=== PATIENT | female | born 1950 | race Caucasian/White ===

== ENCOUNTER 2023-05-23 21:28 | Inpatient (IN) | payer OTHER, MEDICARE ==
[~2023-05-23] VITALS: Ht 149.9 cm; Wt 65.8 kg
[2023-05-23 22:03] VITALS: BP_SYST 161; PULSE 94; RESP 22; TEMP 98.3; O2SAT 96
[2023-05-23 23:45] LABS: BASOPHILS % (AUTO) 0.2 % (0.0-2.0); EOSINOPHILS # (AUTO) 0.3 K/uL (0.0-0.4); EOSINOPHILS % (AUTO) 3.1 % (0.0-4.0); HEMATOCRIT 34.7 % (36-48); HEMOGLOBIN 11.5 g/dL (12.0-16.0); LYMPHOCYTES % (AUTO) 11.9 % (20.5-51.5); MEAN CORPUSCULAR HEMOGLOBIN 29 pg (27-31); MEAN CORPUSCULAR HGB CONC 33 % (32-36); MEAN CORPUSCULAR VOLUME 88 fL (79.0-98.0); MONOCYTES # (AUTO) 0.5 K/uL (0.0-1.0); MONOCYTES % (AUTO) 6.5 % (1.7-9.3); NEUTROPHILS # (AUTO) 6.5 K/uL (1.8-7.7); NEUTROPHILS % (AUTO) 78.3 % (40.0-70.0); PLATELET COUNT (AUTO) 215 K/uL (130-430); RED BLOOD CELL COUNT(AUTO) 3.97 MIL/uL (4.2-6.2); RED CELL DISTRIBUTION WIDTH 14.2 % (9.0-15.0); WHITE BLOOD COUNT (AUTO) 8.2 K/uL (4.8-10.8)
[2023-05-23 23:52] LABS: ANION GAP 13 (5-15); CALCIUM 9.3 mg/dL (8.4-11.0); CARBON DIOXIDE 22 mmol/L (23-29); CHLORIDE 110 mmol/L (98-107); CREATININE 5.02 mg/dL (0.55-1.30); GLUCOSE 126 mg/dL (74-106); POTASSIUM 4.2 mmol/L (3.5-5.1); SODIUM SERUM 145 mmol/L (136-145); UREA NITROGEN, BLOOD 91 mg/dL (8-21)
[2023-05-23 23:56] LABS: ALANINE AMINOTRANSFERASE 31 U/L (12-78); ALBUMIN 3.2 g/dL (3.4-4.8); ASPARTATE AMINOTRANSFERASE 12 U/L (10-37); BILIRUBIN,DIRECT < 0.1 mg/dL (0.0-0.3); TOTAL BILIRUBIN 0.2 mg/dL (0.0-1.0); TOTAL PROTEIN, SERUM 7.7 g/dL (6.4-8.3)
[2023-05-24] VITALS (8 sets, daily range): BP systolic 133–149; PULSE 67–97; RESP 13–18; TEMP 97.3–98.2; O2SAT 95–99
[2023-05-24 01:03] LABS: BILIRUBIN,URINE NEGATIVE (NEGATIVE); CLARITY/URINE SL CLOUDY (CLEAR); COLOR,URINE YELLOW (YELLOW); GLUCOSE,URINE NEGATIVE (NEGATIVE); KETONES,URINE NEGATIVE (NEGATIVE); LEUKOCYTE ESTERASE ,URINE 1+ (NEGATIVE); NITRITE, URINE NEGATIVE (NEGATIVE); PROTEIN URINE 1+ (NEGATIVE); UROBILINOGEN,URINE 0.2 (0.2-1.0)
[2023-05-24] MEDS ORDERED: HYDC2.5% TP (01:03)
[2023-05-24] MEDS ORDERED: ALEN10TA25 PO (01:03)
[2023-05-24] MEDS ORDERED: ACET325T PO (01:03)
[2023-05-24] MEDS ORDERED: FAMO40TA7 PO (01:03)
[2023-05-24] MEDS ORDERED: SYN50 PO (01:03)
[2023-05-24] MEDS ORDERED: ONDA-8 TL (01:03)
[2023-05-24] MEDS ORDERED: SENN8.6T19 PO (01:03)
[2023-05-24] MEDS ORDERED: MOM PO (01:03)
[2023-05-24] MEDS ORDERED: GUAI-1197 PO (01:03)
[2023-05-24] MEDS ORDERED: FER300L PO (01:03)
[2023-05-24] MEDS ORDERED: AMLO5TAB4 PO (01:03)
[2023-05-24] MEDS ORDERED: LOPE2CAP PO (01:03)
[2023-05-24] MEDS ORDERED: BISA10SU61 RC (01:03)
[2023-05-24] MEDS ORDERED: CHOL125C6 PO (01:03)
[2023-05-24] MEDS ORDERED: DOCU-156 PO (01:03)
[2023-05-24] MEDS ORDERED: DIPH25CA83 PO (01:03)
[2023-05-24] MEDS ORDERED: SIMV-343 PO (01:03)
[2023-05-24] MEDS ORDERED: PHEDM120 PO (01:03)
[2023-05-24] MEDS ORDERED: LACT10SO6 PO (01:03)
[2023-05-24] MEDS ORDERED: ASPI-1393 PO (01:03)
[2023-05-24] MEDS ORDERED: XALEYE BOTH EYES (01:03)
[2023-05-24 01:12] LABS: BLOOD, URINE TRACE (NEGATIVE)
[2023-05-24 01:13] LABS: BACTERIA,URINE MANY /HPF (None Seen); RBC,URINE 0-3 /HPF (0-3); WBC,URINE 0-3 /HPF (0-3)
[2023-05-24] MEDS: NACL 0.9% 1,000 ML IV ONE (01:14)
[2023-05-24] MEDS: NACL 0.9% 1,000 ML IV SCH (03:16)
[2023-05-24] MEDS ORDERED: NALOXONE HCL 0.4 MG/ML AMP (NARCAN) IVP PRN ×2 (07:30)
[2023-05-24] MEDS ORDERED: HYDROCORTISONE 2.5%, 30 GM TOPICAL CREAM TP PRN (07:30)
[2023-05-24] MEDS ORDERED: BISACODYL 10 MG/SUPPOSITORY RC PRN (07:30)
[2023-05-24] MEDS ORDERED: HYDROcodone/ACETAMIN 10-325 MG TAB PO PRN (07:30)
[2023-05-24] MEDS ORDERED: DIPHENHYDRAMINE HCL 25 MG CAPSULE PO PRN (07:30)
[2023-05-24] MEDS ORDERED: guaiFENesin 200 MG/10 ML UDC PO PRN (07:30)
[2023-05-24] MEDS ORDERED: ONDANSETRON HCL 4 MG/2 ML VIAL IVP PRN (07:30)
[2023-05-24] MEDS ORDERED: ACETAMINOPHEN 325 MG TABLET PO PRN ×2 (07:30→09:15)
[2023-05-24] MEDS ORDERED: LOPERAMIDE HCL 2 MG CAPSULE PO PRN ×2 (07:30→10:34)
[2023-05-24] MEDS ORDERED: NON-FORMULARY MEDICATION (Lactulose 30 ML) PO SCH (09:00)
[2023-05-24] MEDS ORDERED: FAMOTIDINE 20 MG TABLET PO SCH (09:00)
[2023-05-24] MEDS: LACTULOSE 20 GM/30 ML UDC PO ONE (10:58)
[2023-05-24] MEDS: ASPIRIN 81 MG TABLET(ECOTRIN) PO SCH (11:14)
[2023-05-24] MEDS: amLODIPine BESYLATE 5 MG TABLET PO SCH (11:14)
[2023-05-24] MEDS: DOCUSATE SODIUM 100 MG CAPSULE PO SCH (11:14)
[2023-05-24] MEDS: FERROUS SULFATE 300 MG/5 ML UDC PO SCH (11:14)
[2023-05-24 13:01] LABS: BASOPHILS % (AUTO) 0.2 % (0.0-2.0); EOSINOPHILS # (AUTO) 0.3 K/uL (0.0-0.4); HEMATOCRIT 32.3 % (36-48); HEMOGLOBIN 10.9 g/dL (12.0-16.0); LYMPHOCYTES # (AUTO) 1.1 K/uL (1.0-5.5); LYMPHOCYTES % (AUTO) 20.2 % (20.5-51.5); MEAN CORPUSCULAR HEMOGLOBIN 29 pg (27-31); MEAN CORPUSCULAR HGB CONC 34 % (32-36); MEAN CORPUSCULAR VOLUME 87 fL (79.0-98.0); MONOCYTES # (AUTO) 0.5 K/uL (0.0-1.0); MONOCYTES % (AUTO) 9.6 % (1.7-9.3); NEUTROPHILS # (AUTO) 3.7 K/uL (1.8-7.7); PLATELET COUNT (AUTO) 195 K/uL (130-430); RED BLOOD CELL COUNT(AUTO) 3.71 MIL/uL (4.2-6.2); RED CELL DISTRIBUTION WIDTH 13.9 % (9.0-15.0); WHITE BLOOD COUNT (AUTO) 5.7 K/uL (4.8-10.8)
[2023-05-24 13:11] LABS: ANION GAP 12 (5-15); CALCIUM 8.4 mg/dL (8.4-11.0); CARBON DIOXIDE 21 mmol/L (23-29); CHLORIDE 116 mmol/L (98-107); CREATININE 4.49 mg/dL (0.55-1.30); GLUCOSE 110 mg/dL (74-106); PHOSPHORUS 4.5 mg/dL (2.7-4.5); POTASSIUM 4.3 mmol/L (3.5-5.1); SODIUM SERUM 149 mmol/L (136-145); UREA NITROGEN, BLOOD 85 mg/dL (8-21)
[2023-05-24] MEDS: cefTRIAXone 1 GM in D5W 50 ML IV SCH (14:26)
[2023-05-24] MEDS ORDERED: MILK OF MAGNESIA 30 ML UDC PO PRN (21:00)
[2023-05-24] MEDS: SIMVASTATIN 20 MG TABLET PO SCH (21:06)
[2023-05-24] MEDS: SENNOSIDES 8.6 MG TABLET PO SCH (21:06)
[2023-05-24] MEDS: LATANOPROST 2.5 ML DROPS (XALATAN) OP SCH (21:09)
[2023-05-25 00:53] VITALS: BP_SYST 142; PULSE 82; RESP 16; TEMP 98.2; O2SAT 98
[2023-05-25 05:58] LABS: BASOPHILS % (AUTO) 0.2 % (0.0-2.0); EOSINOPHILS # (AUTO) 0.4 K/uL (0.0-0.4); EOSINOPHILS % (AUTO) 6.2 % (0.0-4.0); HEMOGLOBIN 9.9 g/dL (12.0-16.0); LYMPHOCYTES # (AUTO) 1.2 K/uL (1.0-5.5); LYMPHOCYTES % (AUTO) 20.6 % (20.5-51.5); MEAN CORPUSCULAR HEMOGLOBIN 29 pg (27-31); MEAN CORPUSCULAR HGB CONC 33 % (32-36); MEAN CORPUSCULAR VOLUME 88 fL (79.0-98.0); MONOCYTES # (AUTO) 0.4 K/uL (0.0-1.0); MONOCYTES % (AUTO) 7.4 % (1.7-9.3); NEUTROPHILS # (AUTO) 3.8 K/uL (1.8-7.7); NEUTROPHILS % (AUTO) 65.6 % (40.0-70.0); PLATELET COUNT (AUTO) 182 K/uL (130-430); WHITE BLOOD COUNT (AUTO) 5.7 K/uL (4.8-10.8)
[2023-05-25] MEDS: LEVOTHYROXINE SODIUM 0.05 MG TABLET PO SCH (06:17)
[2023-05-25 06:24] LABS: ANION GAP 11 (5-15); CALCIUM 7.8 mg/dL (8.4-11.0); CARBON DIOXIDE 20 mmol/L (23-29); CHLORIDE 115 mmol/L (98-107); CREATININE 4.44 mg/dL (0.55-1.30); GLUCOSE 90 mg/dL (74-106); PHOSPHORUS 4.4 mg/dL (2.7-4.5); POTASSIUM 4.3 mmol/L (3.5-5.1); SODIUM SERUM 146 mmol/L (136-145); UREA NITROGEN, BLOOD 73 mg/dL (8-21)
[2023-05-25 07:46] VITALS: BP_SYST 146; PULSE 63; RESP 18; TEMP 98; O2SAT 94
[2023-05-25 07:49] VITALS: O2SAT 95
[2023-05-25] MEDS: CHOLECALCIFEROL (VITAMIN D3) 2,000 UNIT TABLET PO SCH (08:44)
[2023-05-25] MEDS: LACTULOSE 20 GM/30 ML UDC PO SCH (08:44)
[2023-05-25 11:09] VITALS: BP_SYST 120; PULSE 69; RESP 16; TEMP 96.7; O2SAT 96
[2023-05-25 15:19] VITALS: BP_SYST 130; PULSE 71; RESP 16; TEMP 97.7; O2SAT 95
[2023-05-25] MEDS: LORazepam 2 MG/ML VIAL IVP PRN (18:52)
[2023-05-25 20:10] VITALS: BP_SYST 126; PULSE 79; RESP 18; TEMP 97; O2SAT 96
[2023-05-25 22:03] LABS: CHLORIDE,URINE RANDOM 91 mmol/L (55-125); URINE SODIUM, RANDOM 95 mmol/L (40-220)
[2023-05-26] MEDS ORDERED: NACL 0.45% IV SCH
[2023-05-26] MEDS ORDERED: SODIUM ACETATE IV SCH
[2023-05-26 00:39] VITALS: BP_SYST 140; PULSE 66; RESP 18; TEMP 98.1; O2SAT 97
[2023-05-26] MEDS: SODIUM BICARBONATE 8.4% JECT 50 MEQ in 0.45% NACL 1,000 ML IVP SCH (06:51)
[2023-05-26 08:01] VITALS: BP_SYST 158; PULSE 72; RESP 20; TEMP 96.6; O2SAT 96
[2023-05-26 08:17] VITALS: O2SAT 97
[2023-05-26] MEDS: FAMOTIDINE 20 MG TABLET PO SCH (09:21)
[2023-05-26 11:20] VITALS: BP_SYST 164; PULSE 76; RESP 16; TEMP 97; O2SAT 98
[2023-05-26] MEDS ORDERED: CHOL100034 PO (11:52)
[2023-05-26] MEDS ORDERED: ALEN70TA84 PO (11:52)
[2023-05-26] MEDS ORDERED: FAMO-132 PO (11:52)
[2023-05-26] MEDS ORDERED: FERR-69 PO (11:52)
[2023-05-26] MEDS ORDERED: ACET325T53 PO (11:52)
[2023-05-26] MEDS ORDERED: [UNRECOGNIZED DRUG - CODE] MM (12:04)
[2023-05-26] MEDS ORDERED: ACET-73 PO (12:04)
[2023-05-26] MEDS ORDERED: ACET1TAB93 PO (12:04)
[2023-05-26] MEDS ORDERED: ONDA4TAB55 PO (12:04)
[2023-05-26] MEDS: cloNIDine HCL 0.1 MG TABLET PO PRN (14:04)
[2023-05-26 16:13] VITALS: BP_SYST 112; PULSE 78; RESP 17; TEMP 97.9; O2SAT 97
[2023-05-26 18:17] LABS: ANION GAP 14 (5-15); CALCIUM 7.6 mg/dL (8.4-11.0); CARBON DIOXIDE 17 mmol/L (23-29); CHLORIDE 118 mmol/L (98-107); CREATININE 3.99 mg/dL (0.55-1.30); GLUCOSE 86 mg/dL (74-106); POTASSIUM 4.2 mmol/L (3.5-5.1); SODIUM SERUM 149 mmol/L (136-145); UREA NITROGEN, BLOOD 67 mg/dL (8-21)
[2023-05-26 18:19] LABS: BASOPHILS % (AUTO) 0.3 % (0.0-2.0); EOSINOPHILS # (AUTO) 0.4 K/uL (0.0-0.4); EOSINOPHILS % (AUTO) 7.1 % (0.0-4.0); HEMOGLOBIN 9.6 g/dL (12.0-16.0); LYMPHOCYTES # (AUTO) 1.2 K/uL (1.0-5.5); MEAN CORPUSCULAR HEMOGLOBIN 29 pg (27-31); MEAN CORPUSCULAR HGB CONC 33 % (32-36); MEAN CORPUSCULAR VOLUME 88 fL (79.0-98.0); MONOCYTES # (AUTO) 0.6 K/uL (0.0-1.0); MONOCYTES % (AUTO) 10.2 % (1.7-9.3); NEUTROPHILS # (AUTO) 3.9 K/uL (1.8-7.7); NEUTROPHILS % (AUTO) 62.4 % (40.0-70.0); PLATELET COUNT (AUTO) 187 K/uL (130-430); RED CELL DISTRIBUTION WIDTH 14.4 % (9.0-15.0); WHITE BLOOD COUNT (AUTO) 6.2 K/uL (4.8-10.8)
[2023-05-26 19:41] VITALS: BP_SYST 121; PULSE 63; RESP 18; TEMP 98; O2SAT 97
[2023-05-27 00:36] VITALS: BP_SYST 158; PULSE 66; RESP 16; TEMP 97.8; O2SAT 98
[2023-05-27 07:44] VITALS: BP_SYST 153; PULSE 72; RESP 17; TEMP 97.3; O2SAT 97
[2023-05-27 10:50] VITALS: O2SAT 97
[2023-05-27 11:26] VITALS: BP_SYST 146; PULSE 74; RESP 16; TEMP 97; O2SAT 98
[2023-05-27] MEDS: HYDROcodone/ACETAMIN 5-325 MG TAB (NORCO/ VICODIN) PO PRN (14:30)
[2023-05-27 15:11] VITALS: BP_SYST 141; PULSE 65; RESP 16; TEMP 98.1; O2SAT 97
[2023-05-27 20:10] VITALS: BP_SYST 154; PULSE 69; RESP 20; TEMP 97.4; O2SAT 69; O2SAT 96
[2023-05-28] VITALS (7 sets, daily range): BP systolic 140–165; PULSE 70–84; RESP 16–18; TEMP 97.8–98.8; O2SAT 96–97
[2023-05-28] MEDS: PROMETHAZINE-DM 6.25 MG-15 MG/5 ML UDC PO PRN (02:04)
[2023-05-28 07:57] LABS: BASOPHILS % (AUTO) 0.6 % (0.0-2.0); EOSINOPHILS # (AUTO) 0.5 K/uL (0.0-0.4); HEMATOCRIT 29.2 % (36-48); HEMOGLOBIN 9.7 g/dL (12.0-16.0); LYMPHOCYTES % (AUTO) 18.4 % (20.5-51.5); MEAN CORPUSCULAR HEMOGLOBIN 29 pg (27-31); MEAN CORPUSCULAR HGB CONC 33 % (32-36); MEAN CORPUSCULAR VOLUME 87 fL (79.0-98.0); MONOCYTES # (AUTO) 0.5 K/uL (0.0-1.0); MONOCYTES % (AUTO) 9.4 % (1.7-9.3); NEUTROPHILS # (AUTO) 3.4 K/uL (1.8-7.7); NEUTROPHILS % (AUTO) 62.6 % (40.0-70.0); PLATELET COUNT (AUTO) 196 K/uL (130-430); RED BLOOD CELL COUNT(AUTO) 3.35 MIL/uL (4.2-6.2); RED CELL DISTRIBUTION WIDTH 14.3 % (9.0-15.0); WHITE BLOOD COUNT (AUTO) 5.5 K/uL (4.8-10.8)
[2023-05-28 08:08] LABS: ANION GAP 13 (5-15); CALCIUM 8.7 mg/dL (8.4-11.0); CARBON DIOXIDE 22 mmol/L (23-29); CHLORIDE 111 mmol/L (98-107); CREATININE 4.23 mg/dL (0.55-1.30); GLUCOSE 83 mg/dL (74-106); PHOSPHORUS 5.1 mg/dL (2.7-4.5); POTASSIUM 4.2 mmol/L (3.5-5.1); SODIUM SERUM 146 mmol/L (136-145); UREA NITROGEN, BLOOD 70 mg/dL (8-21)
[2023-05-28 17:09] LABS: BASOPHILS % (AUTO) 0.5 % (0.0-2.0); EOSINOPHILS # (AUTO) 0.4 K/uL (0.0-0.4); EOSINOPHILS % (AUTO) 7.2 % (0.0-4.0); HEMATOCRIT 30.4 % (36-48); HEMOGLOBIN 10.3 g/dL (12.0-16.0); LYMPHOCYTES % (AUTO) 18.2 % (20.5-51.5); MEAN CORPUSCULAR HEMOGLOBIN 30 pg (27-31); MEAN CORPUSCULAR HGB CONC 34 % (32-36); MEAN CORPUSCULAR VOLUME 88 fL (79.0-98.0); MONOCYTES # (AUTO) 0.5 K/uL (0.0-1.0); MONOCYTES % (AUTO) 8.5 % (1.7-9.3); NEUTROPHILS # (AUTO) 3.5 K/uL (1.8-7.7); NEUTROPHILS % (AUTO) 65.6 % (40.0-70.0); PLATELET COUNT (AUTO) 206 K/uL (130-430); RED BLOOD CELL COUNT(AUTO) 3.48 MIL/uL (4.2-6.2); RED CELL DISTRIBUTION WIDTH 13.9 % (9.0-15.0); WHITE BLOOD COUNT (AUTO) 5.4 K/uL (4.8-10.8)
[2023-05-28 17:10] LABS: ANION GAP 10 (5-15); CALCIUM 8.8 mg/dL (8.4-11.0); CARBON DIOXIDE 26 mmol/L (23-29); CHLORIDE 108 mmol/L (98-107); GLUCOSE 86 mg/dL (74-106); POTASSIUM 4.5 mmol/L (3.5-5.1); SODIUM SERUM 144 mmol/L (136-145); UREA NITROGEN, BLOOD 68 mg/dL (8-21)
[2023-05-29] VITALS (7 sets, daily range): BP systolic 132–166; PULSE 62–89; RESP 17–18; TEMP 97.5–98.4; O2SAT 94–99
[2023-05-29 05:45] LABS: BASOPHILS % (AUTO) 0.4 % (0.0-2.0); EOSINOPHILS # (AUTO) 0.4 K/uL (0.0-0.4); EOSINOPHILS % (AUTO) 6.8 % (0.0-4.0); HEMATOCRIT 29.2 % (36-48); HEMOGLOBIN 9.8 g/dL (12.0-16.0); LYMPHOCYTES # (AUTO) 1.3 K/uL (1.0-5.5); LYMPHOCYTES % (AUTO) 21.1 % (20.5-51.5); MEAN CORPUSCULAR HEMOGLOBIN 29 pg (27-31); MEAN CORPUSCULAR HGB CONC 33 % (32-36); MEAN CORPUSCULAR VOLUME 87 fL (79.0-98.0); MONOCYTES # (AUTO) 0.7 K/uL (0.0-1.0); NEUTROPHILS # (AUTO) 3.7 K/uL (1.8-7.7); NEUTROPHILS % (AUTO) 60.7 % (40.0-70.0); PLATELET COUNT (AUTO) 200 K/uL (130-430); RED BLOOD CELL COUNT(AUTO) 3.35 MIL/uL (4.2-6.2); WHITE BLOOD COUNT (AUTO) 6.2 K/uL (4.8-10.8)
[2023-05-29 06:03] LABS: ANION GAP 14 (5-15); CALCIUM 9.1 mg/dL (8.4-11.0); CARBON DIOXIDE 21 mmol/L (23-29); CHLORIDE 110 mmol/L (98-107); CREATININE 4.63 mg/dL (0.55-1.30); GLUCOSE 82 mg/dL (74-106); POTASSIUM 4.3 mmol/L (3.5-5.1); SODIUM SERUM 145 mmol/L (136-145); UREA NITROGEN, BLOOD 71 mg/dL (8-21)
[2023-05-30] VITALS (7 sets, daily range): BP systolic 129–150; PULSE 66–86; RESP 16–20; TEMP 97.3–98.3; O2SAT 95–98
[2023-05-30 09:55] LABS: BASOPHILS % (AUTO) 0.6 % (0.0-2.0); EOSINOPHILS # (AUTO) 0.4 K/uL (0.0-0.4); EOSINOPHILS % (AUTO) 7.3 % (0.0-4.0); HEMOGLOBIN 10.4 g/dL (12.0-16.0); LYMPHOCYTES # (AUTO) 0.9 K/uL (1.0-5.5); LYMPHOCYTES % (AUTO) 15.5 % (20.5-51.5); MEAN CORPUSCULAR HEMOGLOBIN 29 pg (27-31); MEAN CORPUSCULAR HGB CONC 34 % (32-36); MEAN CORPUSCULAR VOLUME 87 fL (79.0-98.0); MONOCYTES # (AUTO) 0.4 K/uL (0.0-1.0); MONOCYTES % (AUTO) 6.5 % (1.7-9.3); NEUTROPHILS # (AUTO) 4.1 K/uL (1.8-7.7); NEUTROPHILS % (AUTO) 70.1 % (40.0-70.0); PLATELET COUNT (AUTO) 228 K/uL (130-430); RED BLOOD CELL COUNT(AUTO) 3.55 MIL/uL (4.2-6.2); RED CELL DISTRIBUTION WIDTH 14.1 % (9.0-15.0); WHITE BLOOD COUNT (AUTO) 5.8 K/uL (4.8-10.8)
[2023-05-30 10:12] LABS: ANION GAP 12 (5-15); CALCIUM 8.9 mg/dL (8.4-11.0); CARBON DIOXIDE 24 mmol/L (23-29); CHLORIDE 108 mmol/L (98-107); CREATININE 4.41 mg/dL (0.55-1.30); GLUCOSE 185 mg/dL (74-106); POTASSIUM 4.3 mmol/L (3.5-5.1); SODIUM SERUM 144 mmol/L (136-145); UREA NITROGEN, BLOOD 72 mg/dL (8-21)
[2023-05-31 00:43] VITALS: BP_SYST 135; PULSE 72; RESP 16; TEMP 97.3; O2SAT 98
[2023-05-31 07:28] LABS: BASOPHILS % (AUTO) 0.6 % (0.0-2.0); EOSINOPHILS # (AUTO) 0.5 K/uL (0.0-0.4); EOSINOPHILS % (AUTO) 7.8 % (0.0-4.0); HEMATOCRIT 32.4 % (36-48); HEMOGLOBIN 10.7 g/dL (12.0-16.0); LYMPHOCYTES # (AUTO) 1.1 K/uL (1.0-5.5); LYMPHOCYTES % (AUTO) 19.5 % (20.5-51.5); MEAN CORPUSCULAR HEMOGLOBIN 29 pg (27-31); MEAN CORPUSCULAR HGB CONC 33 % (32-36); MEAN CORPUSCULAR VOLUME 88 fL (79.0-98.0); MONOCYTES # (AUTO) 0.6 K/uL (0.0-1.0); MONOCYTES % (AUTO) 10.2 % (1.7-9.3); NEUTROPHILS # (AUTO) 3.6 K/uL (1.8-7.7); NEUTROPHILS % (AUTO) 61.9 % (40.0-70.0); PLATELET COUNT (AUTO) 227 K/uL (130-430); RED CELL DISTRIBUTION WIDTH 14.4 % (9.0-15.0); WHITE BLOOD COUNT (AUTO) 5.9 K/uL (4.8-10.8)
[2023-05-31 07:40] LABS: ANION GAP 13 (5-15); CALCIUM 9.3 mg/dL (8.4-11.0); CARBON DIOXIDE 22 mmol/L (23-29); CHLORIDE 107 mmol/L (98-107); CREATININE 4.62 mg/dL (0.55-1.30); GLUCOSE 87 mg/dL (74-106); PHOSPHORUS 6.8 mg/dL (2.7-4.5); POTASSIUM 4.5 mmol/L (3.5-5.1); SODIUM SERUM 142 mmol/L (136-145); UREA NITROGEN, BLOOD 77 mg/dL (8-21)
[2023-05-31 09:53] VITALS: BP_SYST 133; PULSE 67; RESP 18; TEMP 97.6; O2SAT 97
[2023-05-31 10:02] VITALS: O2SAT 97
[2023-05-31 11:30] VITALS: BP_SYST 142; PULSE 75; RESP 20; TEMP 97.9; O2SAT 97
[2023-05-31 17:02] VITALS: BP_SYST 141; PULSE 64; RESP 19; TEMP 98; O2SAT 97
[2023-05-31 20:15] VITALS: BP_SYST 149; PULSE 65; RESP 16; TEMP 97.7; O2SAT 98
[2023-06-01] VITALS: BP_SYST 139; PULSE 67; RESP 16; TEMP 98.8; O2SAT 95
[2023-06-01 07:15] LABS: PROTHROMBIN TIME 9.9 SECS (9.5-12.5)
[2023-06-01 07:55] VITALS: BP_SYST 143; PULSE 77; RESP 17; TEMP 96.7; O2SAT 95
[2023-06-01 08:10] VITALS: O2SAT 95
[2023-06-01 11:31] VITALS: BP_SYST 120; PULSE 76; RESP 17; TEMP 97.2; O2SAT 95
[2023-06-01 16:55] VITALS: BP_SYST 126; PULSE 79; RESP 16; TEMP 97.9; O2SAT 95
[2023-06-01 20:45] VITALS: O2SAT 97
[2023-06-02] VITALS (7 sets, daily range): BP systolic 133–155; PULSE 64–76; RESP 16–18; TEMP 97.5–98.4; O2SAT 94–100
[2023-06-02 07:37] LABS: ANION GAP 14 (5-15); CALCIUM 9.3 mg/dL (8.4-11.0); CARBON DIOXIDE 20 mmol/L (23-29); CHLORIDE 111 mmol/L (98-107); CREATININE 5.31 mg/dL (0.55-1.30); GLUCOSE 90 mg/dL (74-106); POTASSIUM 4.5 mmol/L (3.5-5.1); SODIUM SERUM 145 mmol/L (136-145); UREA NITROGEN, BLOOD 93 mg/dL (8-21)
[2023-06-02 07:57] LABS: BASOPHILS % (AUTO) 0.5 % (0.0-2.0); EOSINOPHILS # (AUTO) 0.5 K/uL (0.0-0.4); HEMATOCRIT 33.5 % (36-48); LYMPHOCYTES # (AUTO) 1.3 K/uL (1.0-5.5); MEAN CORPUSCULAR HEMOGLOBIN 29 pg (27-31); MEAN CORPUSCULAR HGB CONC 33 % (32-36); MEAN CORPUSCULAR VOLUME 89 fL (79.0-98.0); MONOCYTES # (AUTO) 0.7 K/uL (0.0-1.0); MONOCYTES % (AUTO) 12.2 % (1.7-9.3); NEUTROPHILS # (AUTO) 3.3 K/uL (1.8-7.7); NEUTROPHILS % (AUTO) 57.3 % (40.0-70.0); PLATELET COUNT (AUTO) 227 K/uL (130-430); RED BLOOD CELL COUNT(AUTO) 3.78 MIL/uL (4.2-6.2); RED CELL DISTRIBUTION WIDTH 14.2 % (9.0-15.0); WHITE BLOOD COUNT (AUTO) 5.7 K/uL (4.8-10.8)
[2023-06-03] VITALS: BP_SYST 130; PULSE 72; RESP 16; TEMP 98.2; O2SAT 98
[2023-06-03] MEDS: LORazepam 2 MG/ML VIAL IVP PRN (00:31)
[2023-06-03 06:03] LABS: ANION GAP 12 (5-15); CALCIUM 9.5 mg/dL (8.4-11.0); CARBON DIOXIDE 21 mmol/L (23-29); CHLORIDE 113 mmol/L (98-107); CREATININE 5.21 mg/dL (0.55-1.30); GLUCOSE 107 mg/dL (74-106); POTASSIUM 4.2 mmol/L (3.5-5.1); SODIUM SERUM 146 mmol/L (136-145); UREA NITROGEN, BLOOD 95 mg/dL (8-21)
[2023-06-03 09:30] VITALS: O2SAT 98
[2023-06-03 11:07] LABS: QUANTIFERON TB GOLD Negative (Negative)
[2023-06-03 11:11] VITALS: BP_SYST 146; PULSE 72; RESP 16; TEMP 96.8; O2SAT 96
[2023-06-03 15:02] VITALS: BP_SYST 136; PULSE 79; RESP 16; TEMP 97.7; O2SAT 96
[2023-06-03 20:00] VITALS: BP_SYST 130; PULSE 81; RESP 18; TEMP 97.9; O2SAT 96
[2023-06-03] MEDS: HEPARIN SODIUM,PORCINE 5,000 UNITS/ML VIAL IVP ONE (22:00)
[2023-06-04] VITALS: BP_SYST 132; PULSE 77; RESP 18; TEMP 98.1; O2SAT 97
[2023-06-04 05:51] LABS: BASOPHILS % (AUTO) 0.5 % (0.0-2.0); EOSINOPHILS # (AUTO) 0.4 K/uL (0.0-0.4); EOSINOPHILS % (AUTO) 6.6 % (0.0-4.0); HEMATOCRIT 33.7 % (36-48); HEMOGLOBIN 11.1 g/dL (12.0-16.0); LYMPHOCYTES # (AUTO) 1.4 K/uL (1.0-5.5); LYMPHOCYTES % (AUTO) 20.6 % (20.5-51.5); MEAN CORPUSCULAR HEMOGLOBIN 29 pg (27-31); MEAN CORPUSCULAR HGB CONC 33 % (32-36); MEAN CORPUSCULAR VOLUME 88 fL (79.0-98.0); MONOCYTES # (AUTO) 0.7 K/uL (0.0-1.0); MONOCYTES % (AUTO) 10.6 % (1.7-9.3); NEUTROPHILS # (AUTO) 4.2 K/uL (1.8-7.7); NEUTROPHILS % (AUTO) 61.7 % (40.0-70.0); PLATELET COUNT (AUTO) 244 K/uL (130-430); RED BLOOD CELL COUNT(AUTO) 3.82 MIL/uL (4.2-6.2); RED CELL DISTRIBUTION WIDTH 14.3 % (9.0-15.0); WHITE BLOOD COUNT (AUTO) 6.8 K/uL (4.8-10.8)
[2023-06-04 06:25] LABS: ALANINE AMINOTRANSFERASE 88 U/L (12-78); ALBUMIN 3.3 g/dL (3.4-4.8); ANION GAP 14 (5-15); ASPARTATE AMINOTRANSFERASE 39 U/L (10-37); CALCIUM 9.6 mg/dL (8.4-11.0); CARBON DIOXIDE 20 mmol/L (23-29); CHLORIDE 113 mmol/L (98-107); GLUCOSE 118 mg/dL (74-106); PHOSPHORUS 5.7 mg/dL (2.7-4.5); POTASSIUM 4.5 mmol/L (3.5-5.1); SODIUM SERUM 147 mmol/L (136-145); TOTAL BILIRUBIN 0.2 mg/dL (0.0-1.0); TOTAL PROTEIN, SERUM 7.5 g/dL (6.4-8.3); UREA NITROGEN, BLOOD 100 mg/dL (8-21)
[2023-06-04 07:40] VITALS: BP_SYST 141; PULSE 84; RESP 18; TEMP 98; O2SAT 97
[2023-06-04 08:00] VITALS: O2SAT 99
[2023-06-04 11:16] VITALS: BP_SYST 146; PULSE 73; RESP 16; TEMP 97; O2SAT 96
[2023-06-04 15:57] VITALS: BP_SYST 130; PULSE 74; RESP 16; TEMP 98; O2SAT 95
[2023-06-04 20:00] VITALS: BP_SYST 120; PULSE 78; RESP 18; TEMP 97.8; O2SAT 95
[2023-06-05 00:46] VITALS: BP_SYST 147; PULSE 70; RESP 16; TEMP 97.5; O2SAT 98
[2023-06-05 05:21] LABS: ANION GAP 15 (5-15); CALCIUM 9.2 mg/dL (8.4-11.0); CARBON DIOXIDE 20 mmol/L (23-29); CHLORIDE 110 mmol/L (98-107); CREATININE 5.66 mg/dL (0.55-1.30); GLUCOSE 103 mg/dL (74-106); SODIUM SERUM 145 mmol/L (136-145)
[2023-06-05 05:57] LABS: UREA NITROGEN, BLOOD 102 mg/dL (8-21)
[2023-06-05 07:48] VITALS: BP_SYST 134; PULSE 67; RESP 18; TEMP 97.1; O2SAT 97
[2023-06-05 08:00] VITALS: O2SAT 97
[2023-06-05] MEDS ORDERED: fentaNYL CITRATE/PF 100 MCG/2 ML AMP ONE (11:10)
[2023-06-05] MEDS ORDERED: WATER FOR IRRIGATION,STERILE 1,000 ML IRRIG.SOLN IR ONE (11:10)
[2023-06-05] MEDS ORDERED: PROPOFOL 200MG/ 20ML VIAL (DIPRIVAN) IV ONE (11:10)
[2023-06-05] MEDS ORDERED: HEPARIN SODIUM,PORCINE 10,000 UNIT/ML VIAL ONE (11:10)
[2023-06-05] MEDS ORDERED: NS IRRIG SOLN 1000 ML IR ONE (11:10)
[2023-06-05] MEDS ORDERED: BUPIVACAINE /PF 0.25% 30 ML VIAL INJ ONE (11:10)
[2023-06-05] MEDS ORDERED: ONDANSETRON HCL 4 MG/2 ML VIAL ONE (11:10)
[2023-06-05] MEDS ORDERED: SEVOFLURANE 15 MIN GAS INH ONE (11:10)
[2023-06-05] MEDS ORDERED: NS 1000 ML IV.SOLN IV ONE (11:10)
[2023-06-05] MEDS ORDERED: ePHEDrine sulfate 50 MG/ML VIAL ONE (11:10)
[2023-06-05] MEDS ORDERED: ceFAZolin SODIUM 1 GM VIAL ONE (11:10)
[2023-06-05 12:00] VITALS: BP_SYST 142; PULSE 58; RESP 18; TEMP 98; O2SAT 92
[2023-06-05] MEDS ORDERED: ONDANSETRON HCL 4 MG/2 ML VIAL IVP PRN (12:15)
[2023-06-05] MEDS: NACL 0.9% 1,000 ML IV SCH (12:15)
[2023-06-05] MEDS: HEPARIN SODIUM, PORCINE 10,000 UNITS/ 10 ML VIAL MC ONE (16:34)
[2023-06-05 20:05] VITALS: BP_SYST 134; PULSE 83; RESP 18; TEMP 97.6; O2SAT 96
[2023-06-06 00:08] VITALS: BP_SYST 108; PULSE 81; RESP 17; TEMP 96.7
[2023-06-06 07:38] LABS: BASOPHILS % (AUTO) 0.4 % (0.0-2.0); EOSINOPHILS # (AUTO) 0.4 K/uL (0.0-0.4); EOSINOPHILS % (AUTO) 7.6 % (0.0-4.0); HEMATOCRIT 32.6 % (36-48); HEMOGLOBIN 10.6 g/dL (12.0-16.0); LYMPHOCYTES # (AUTO) 0.9 K/uL (1.0-5.5); LYMPHOCYTES % (AUTO) 15.9 % (20.5-51.5); MEAN CORPUSCULAR HEMOGLOBIN 29 pg (27-31); MEAN CORPUSCULAR HGB CONC 33 % (32-36); MEAN CORPUSCULAR VOLUME 89 fL (79.0-98.0); MONOCYTES # (AUTO) 0.7 K/uL (0.0-1.0); MONOCYTES % (AUTO) 11.8 % (1.7-9.3); NEUTROPHILS # (AUTO) 3.7 K/uL (1.8-7.7); NEUTROPHILS % (AUTO) 64.3 % (40.0-70.0); PLATELET COUNT (AUTO) 182 K/uL (130-430); RED BLOOD CELL COUNT(AUTO) 3.66 MIL/uL (4.2-6.2); RED CELL DISTRIBUTION WIDTH 14.4 % (9.0-15.0); WHITE BLOOD COUNT (AUTO) 5.8 K/uL (4.8-10.8)
[2023-06-06 07:51] LABS: ANION GAP 9 (5-15); CALCIUM 8.8 mg/dL (8.4-11.0); CARBON DIOXIDE 30 mmol/L (23-29); CHLORIDE 108 mmol/L (98-107); CREATININE 3.95 mg/dL (0.55-1.30); GLUCOSE 111 mg/dL (74-106); PHOSPHORUS 5.6 mg/dL (2.7-4.5); POTASSIUM 4.4 mmol/L (3.5-5.1); SODIUM SERUM 147 mmol/L (136-145); UREA NITROGEN, BLOOD 57 mg/dL (8-21)
[2023-06-06 08:00] VITALS: BP_SYST 114; PULSE 75; RESP 18; TEMP 97.7; O2SAT 99
[2023-06-06 12:00] VITALS: BP_SYST 118; PULSE 66; RESP 18; TEMP 97.4; O2SAT 97
[2023-06-06 14:06] LABS: HEPATITIS A AB, IgM Negative (Negative); HEPATITIS B CORE AB, IgM Negative (Negative); HEPATITIS B SURFACE AG Negative (Negative)
[2023-06-06 16:00] VITALS: BP_SYST 128; PULSE 88; RESP 18; TEMP 98; O2SAT 96
[2023-06-06 20:01] VITALS: BP_SYST 124; PULSE 86; RESP 19; TEMP 97.5; O2SAT 96
[2023-06-07] VITALS (7 sets, daily range): BP systolic 119–130; PULSE 72–86; RESP 16–20; TEMP 97–98; O2SAT 95–100
[2023-06-07 03:06] LABS: HEPATITIS C VIRUS AB Non Reactive (Non Reactive)
[2023-06-07 06:42] LABS: BASOPHILS % (AUTO) 0.5 % (0.0-2.0); EOSINOPHILS # (AUTO) 0.5 K/uL (0.0-0.4); EOSINOPHILS % (AUTO) 8.3 % (0.0-4.0); HEMATOCRIT 30.9 % (36-48); HEMOGLOBIN 10.2 g/dL (12.0-16.0); LYMPHOCYTES # (AUTO) 1.3 K/uL (1.0-5.5); LYMPHOCYTES % (AUTO) 23.5 % (20.5-51.5); MEAN CORPUSCULAR HEMOGLOBIN 29 pg (27-31); MEAN CORPUSCULAR HGB CONC 33 % (32-36); MEAN CORPUSCULAR VOLUME 89 fL (79.0-98.0); MONOCYTES # (AUTO) 0.7 K/uL (0.0-1.0); MONOCYTES % (AUTO) 12.3 % (1.7-9.3); NEUTROPHILS # (AUTO) 3.1 K/uL (1.8-7.7); NEUTROPHILS % (AUTO) 55.4 % (40.0-70.0); PLATELET COUNT (AUTO) 166 K/uL (130-430); RED BLOOD CELL COUNT(AUTO) 3.48 MIL/uL (4.2-6.2); RED CELL DISTRIBUTION WIDTH 14.5 % (9.0-15.0); WHITE BLOOD COUNT (AUTO) 5.6 K/uL (4.8-10.8)
[2023-06-07 06:43] LABS: ANION GAP 12 (5-15); CALCIUM 8.8 mg/dL (8.4-11.0); CARBON DIOXIDE 24 mmol/L (23-29); CHLORIDE 107 mmol/L (98-107); CREATININE 4.75 mg/dL (0.55-1.30); GLUCOSE 103 mg/dL (74-106); POTASSIUM 4.1 mmol/L (3.5-5.1); SODIUM SERUM 143 mmol/L (136-145); UREA NITROGEN, BLOOD 76 mg/dL (8-21)
[2023-06-07] MEDS: HEPARIN SODIUM,PORCINE 5,000 UNITS/ML VIAL MC PRN (12:08)
[2023-06-08 00:41] VITALS: BP_SYST 109; PULSE 83; RESP 16; TEMP 97.9; O2SAT 95
[2023-06-08 08:00] VITALS: BP_SYST 118; PULSE 79; RESP 18; TEMP 97.4; O2SAT 96; O2SAT 97
[2023-06-08 12:00] VITALS: BP_SYST 122; PULSE 80; RESP 18; TEMP 97.9; O2SAT 96
[2023-06-08 16:00] VITALS: BP_SYST 118; PULSE 76; RESP 18; TEMP 98.7; O2SAT 96
[2023-06-08 19:55] VITALS: BP_SYST 131; PULSE 87; RESP 18; TEMP 97.3; O2SAT 94
[2023-06-08 20:45] VITALS: O2SAT 94
[2023-06-09] VITALS (7 sets, daily range): BP systolic 122–154; PULSE 56–80; RESP 16–20; TEMP 97.1–98.7; O2SAT 94–99
[2023-06-09 08:19] LABS: ALANINE AMINOTRANSFERASE 22 U/L (12-78); ALBUMIN 2.9 g/dL (3.4-4.8); ANION GAP 12 (5-15); ASPARTATE AMINOTRANSFERASE 12 U/L (10-37); CARBON DIOXIDE 25 mmol/L (23-29); CHLORIDE 109 mmol/L (98-107); GLUCOSE 98 mg/dL (74-106); PHOSPHORUS 6.6 mg/dL (2.7-4.5); SODIUM SERUM 146 mmol/L (136-145); TOTAL BILIRUBIN 0.2 mg/dL (0.0-1.0); TOTAL PROTEIN, SERUM 6.8 g/dL (6.4-8.3); UREA NITROGEN, BLOOD 85 mg/dL (8-21)
[2023-06-09] MEDS: ALBUMIN HUMAN 25% 200 ML IV ONE (15:15)
[2023-06-09] MEDS: HEPARIN SODIUM,PORCINE 5,000 UNITS/ML VIAL MC ONE ×2 (15:16→15:18)
[2023-06-10] VITALS: RESP 20
[2023-06-10 04:00] VITALS: RESP 20
[2023-06-10 04:45] LABS: BASOPHILS % (AUTO) 0.3 % (0.0-2.0); EOSINOPHILS # (AUTO) 0.5 K/uL (0.0-0.4); EOSINOPHILS % (AUTO) 6.6 % (0.0-4.0); HEMATOCRIT 31.7 % (36-48); HEMOGLOBIN 10.5 g/dL (12.0-16.0); LYMPHOCYTES # (AUTO) 1.7 K/uL (1.0-5.5); LYMPHOCYTES % (AUTO) 21.9 % (20.5-51.5); MEAN CORPUSCULAR HEMOGLOBIN 29 pg (27-31); MEAN CORPUSCULAR HGB CONC 33 % (32-36); MEAN CORPUSCULAR VOLUME 88 fL (79.0-98.0); MONOCYTES # (AUTO) 0.6 K/uL (0.0-1.0); MONOCYTES % (AUTO) 7.7 % (1.7-9.3); NEUTROPHILS % (AUTO) 63.5 % (40.0-70.0); PLATELET COUNT (AUTO) 125 K/uL (130-430); RED BLOOD CELL COUNT(AUTO) 3.59 MIL/uL (4.2-6.2); RED CELL DISTRIBUTION WIDTH 14.1 % (9.0-15.0); WHITE BLOOD COUNT (AUTO) 7.9 K/uL (4.8-10.8)
[2023-06-10 04:53] LABS: ALANINE AMINOTRANSFERASE 19 U/L (12-78); ALBUMIN 4.5 g/dL (3.4-4.8); ANION GAP 13 (5-15); ASPARTATE AMINOTRANSFERASE 17 U/L (10-37); CALCIUM 10.2 mg/dL (8.4-11.0); CARBON DIOXIDE 25 mmol/L (23-29); CHLORIDE 105 mmol/L (98-107); CREATININE 3.61 mg/dL (0.55-1.30); GLUCOSE 104 mg/dL (74-106); PHOSPHORUS 5.2 mg/dL (2.7-4.5); POTASSIUM 3.9 mmol/L (3.5-5.1); SODIUM SERUM 143 mmol/L (136-145); TOTAL BILIRUBIN 0.4 mg/dL (0.0-1.0); TOTAL PROTEIN, SERUM 8.1 g/dL (6.4-8.3); UREA NITROGEN, BLOOD 53 mg/dL (8-21)
[2023-06-10 08:00] VITALS: BP_SYST 126; PULSE 68; RESP 16; TEMP 98.3; O2SAT 98
[2023-06-10 11:20] VITALS: BP_SYST 129; PULSE 74; RESP 16; TEMP 98.3; O2SAT 99
[2023-06-10 12:28] VITALS: BP_SYST 129; PULSE 75; RESP 18; TEMP 97.9; O2SAT 99
== END 2023-06-10 13:30 | disposition home or self-care (01) | DRG 469 ==
LOC: SED 21:28 → STU 05-24 00:35 → SMU 06-07 12:24
PROVIDERS: ADMIT Preventive Medicine Preventive Medicine/Occupational Environmental Medicine; ATTEND Preventive Medicine Preventive Medicine/Occupational Environmental Medicine
PROC: 05JY3ZZ Inspection of Upper Vein, Percutaneous Approach (ICD-10-PCS; 2023-06-03)
PROC: B544ZZA Ultrasonography of Left Jugular Veins, Guidance (ICD-10-PCS; 2023-06-03)
PROC: 02H633Z Insertion of Infusion Device into Right Atrium, Percutaneous Approach (ICD-10-PCS; 2023-06-05)
PROC: B518ZZA Fluoroscopy of Superior Vena Cava, Guidance (ICD-10-PCS; 2023-06-05)
PROC: B548ZZA Ultrasonography of Superior Vena Cava, Guidance (ICD-10-PCS; 2023-06-05)
PROC: 5A1D70Z Performance of Urinary Filtration, Intermittent, Less than 6 Hours Per Day (ICD-10-PCS; 2023-06-05)
PROC: 5A1D70Z Performance of Urinary Filtration, Intermittent, Less than 6 Hours Per Day (ICD-10-PCS; 2023-06-05)
PROC: 5A1D70Z Performance of Urinary Filtration, Intermittent, Less than 6 Hours Per Day (ICD-10-PCS; 2023-06-05)
PROC: 0JH63XZ Insertion of Tunneled Vascular Access Device into Chest Subcutaneous Tissue and Fascia, Percutaneous Approach (ICD-10-PCS; principal; 2023-06-05 10:21)
DX: N17.0 Acute kidney failure with tubular necrosis (principal); R65.11 Systemic inflammatory response syndrome (SIRS) of non-infectious origin with acute organ dysfunction; G93.41 Metabolic encephalopathy; R53.2 Functional quadriplegia; E44.1 Mild protein-calorie malnutrition; E11.22 Type 2 diabetes mellitus with diabetic chronic kidney disease; E87.20 Acidosis, unspecified; E83.39 Other disorders of phosphorus metabolism; E83.41 Hypermagnesemia; E88.09 Other disorders of plasma-protein metabolism, not elsewhere classified; E03.9 Hypothyroidism, unspecified; E78.5 Hyperlipidemia, unspecified; M81.0 Age-related osteoporosis without current pathological fracture; K21.9 Gastro-esophageal reflux disease without esophagitis; N18.30 Chronic kidney disease, stage 3 unspecified; I12.9 Hypertensive chronic kidney disease with stage 1 through stage 4 chronic kidney disease, or unspecified chronic kidney disease; E11.65 Type 2 diabetes mellitus with hyperglycemia; Z86.16 Personal history of COVID-19; Z99.2 Dependence on renal dialysis; Z68.29 Body mass index [BMI] 29.0-29.9, adult; D63.1 Anemia in chronic kidney disease; H40.9 Unspecified glaucoma
CPT/HCPCS: 36415; 71045; 76000; 76770; 80048; 80053; 80074; 80076; 81000; 81001; 81015; 82435; 83605; 83735; 83970; 84100; 84302; 85025; 85610; 86480; 86886; 86900; 86901; 87040; 87081; 87086; 90935; 90937; 93005; 99285; G0378; J0690; J0696; J1644; J2060; J2405; J2704; J3010; J3490; J7030; J7060